=== PATIENT | female | born 2000 | race Caucasian/White ===

== ENCOUNTER 2019-03-18 17:25 | Emergency (ER) | payer SELFPAY ==
[2019-03-18] MEDS ORDERED: HYDROcodone/Acetaminophen 5/325 mg Tablet ONE (17:34)
[2019-03-18] MEDS ORDERED: Ibuprofen 800 MG TAB ONE (17:34)
[2019-03-18] MEDS ORDERED: Adacel (T-DAP) 0.5 ML SYRINGE ONE (17:34)
[2019-03-18] MEDS ORDERED: Bacitracin 1 PK ONE (18:05)
--- NOTE | 2019-03-18 23:06 | RAD ---
RIGHT HAND 3 VIEWS: DATE: 03/18/2019. FINDINGS: No fracture was seen. All bones appear intact. The carpal relationships appear normal. IMPRESSION: No acute findings. POS: HOME
--- NOTE | 2019-03-18 23:06 | RAD ---
CHEST 2 VIEWS: DATE: 03/18/2019. FINDINGS: The heart is normal in size. There is no mediastinal widening or shift. The lungs are fully inflate d and clear. No rib fractures were seen. IMPRESSION: No acute thoracic findings. POS: HOME
== END 2019-03-18 18:12 | disposition home or self-care (01) ==
LOC: BURERS 17:25
DX: S29.012A Strain of muscle and tendon of back wall of thorax, initial encounter (principal); S60.021A Contusion of right index finger without damage to nail, initial encounter; S60.221A Contusion of right hand, initial encounter; S50.811A Abrasion of right forearm, initial encounter; F17.210 Nicotine dependence, cigarettes, uncomplicated; V49.9XXA Car occupant (driver) (passenger) injured in unspecified traffic accident, initial encounter
CPT/HCPCS: 71046; 90471; 90715